=== PATIENT | female | born 1965 | race African-American/Black ===

== ENCOUNTER 2018-06-06 13:33 | Outpatient (RCR) ==
--- NOTE | 2018-06-09 09:00 | RS.OTEVAL ---
Subjective Date of Note: 06/06/18 Visit #: 1 Date of Evaluation: 06/06/18 Payer Source: Medicaid Surgery Performed?: Yes Date of Procedure: 04/18/18 Treatment Diagnosis: Z96.7 S/P ORIF to RUE elbow *Precautions: At risk for falls Prior Level of Function.....Patient was independent with: ADL's, Self Care, Work /Vocation, Caregiving, Ambulation/Mobility, Community Integration/Access History of Condition/Mechanism of Injury: Pt fell on 03/30/18, and she fell backwards and fractured her RUE elbow. She works Level of Function: Pt is 41.25% impaired with carry, moving, and handling objects. Pt has difficulty with fine motor tasks, preparing food, lifting groceries, sleeping is difficult, grooming her hair is difficult. Functional Limitations: Sleep, Self Care, ADL's, Reaching, Pushing, Pulling, Lifting, Carrying Current Complaints/Gains: Pt has difficulty reaching with the RUE, opening a jar , driving, lifting bag of groceries, preparing food, pushing up on hands, throwing a ball. Medical History Medical History Comments:: Right elbow fracture on 03/30/18 and pt had surgery on 04/18/18. Cast came off on 05/01/18. Pt has limited extension and supination of the RUE. Surgical History Comments:: Surgery to the Right elbow on 04/18/18. Hx Home Medications: unknown Patient's Goals: To get the elbow back to where she can use it as before. Pt wants the pain to be gone. Pain Assessment - Pain Description Pain Description: Burning, Radiating, Sharp Pain Location: Right elbow on the lateral epicondylitis. Pain Description: soreness, santos with elbow flexion. Current Pain Intensity: 1 Worst Pain Intensity: 8 Functional Outcome Measures UE Functional Index: 41 - G Codes & Severity Modifier G Codes: Current :CK at 41% impaired. Goal : CH Source of G Code score: Carry, moving, and handling. Observation - Observation Inspection: Pt has edema of the RUE lateral epicondylitis. Handedness: Left Shoulder ROM: Bilaterally WFL's Shoulder Muscle Strength: Bilaterally WFL's Elbow ROM: Left WFL's Elbow Muscle Strength: Left WFL's - Right Elbow ROM Right Elbow Extension: -42 Right Elbow Flexion: 48 (Can flex to 90 deg. but lacks ext.) Right Elbow Supination: 90 Right Elbow Pronation: 55 Right Elbow ROM Limitations: Soft Tissue Tightness, Muscle Weakness, Pain - Left Elbow Strength Left Elbow Extension: 4+ Good + Left Elbow Flexion: 4+ Good + Left Forearm Pronation: 4+ Good + Left Forearm Supination: 4+ Good + - Right Elbow Strength Right Elbow Extension: 3- Fair- Right Elbow Flexion: 3- Fair- Right Forearm Pronation: 3- Fair- Right Forearm Supination: 3 Fair Wrist ROM: Left WFL's Wrist Muscle Strength: Left WFL's - Right Wrist/Hand ROM Right Wrist Extension: 55 Right Wrist Flexion: 50 Right Wrist Radial Deviation: 15 Right Wrist Ulnar Deviation: 15 Right Forearm Pronation: 55 Right Forearm Supination: 90 Right Wrist ROM Testing Limitations: Soft Tissue Tightness, Muscle Weakness - Right Wrist Strength Right Wrist Extension: 4 Good Right Wrist Flexion: 4 Good Right Wrist Radial Deviation: 4 Good Right Wrist Ulnar Deviation: 4 Good Right Forearm Pronation: 4 Good Right Forearm Supination: 4 Good - Organ Pipe Finisher Strength Left Organ Pipe Finisher Strength: 51 Right Organ Pipe Finisher Strength: 16 Organ Pipe Finisher Strength Left Hand Organ Pipe Finisher Strength: 51 Right Hand Organ Pipe Finisher Strength: 16 Dynamometer Testing Position: 2nd Position Palpation Palpation Findings: Tenderness Comments:: Pt has tenderness on the lateral epicondylitis. Sensation Right Upper Extremity: Impaired (Pt wakes up at night with tingling and sharp pain intermittently.) Modalities - Hot Pack/Cryotherapy Treatment: Cryotherapy Interventions - Exercise/Activities Exercise/Activities/Manual Therapy: Contract relax to increase RUE elbow flexion / extension x 5 reps. Pt holds bottom of the chair to pull and lean back to stretch RUE elbow in to extension x 8 reps. Pt placed with hands on table top to complete Weight bearing to facilitate extension of Right elbow. Pt to hold the 5# for 1 minute to increase RUE elbow extension x 5 reps. HOME EXERCISE PROGRAM: Contract relax to increase RUE elbow flexion/ extension x 5 reps. Pt holds bottom of the chair to pull and lean back to stretch RUE elbow in to extension x 8 reps. Pt placed with hands on table top to complete Weight bearing to facilitate extension of Right elbow. Pt to hold the 5# for 1 minute to increase RUE elbow extension x 5 reps. - Objective Findings Objective Findings:: Limited RUE elbow extension, Limited RUe elbow flexion, weakness of RUE. - Charges Timed Code Treatment Minutes: 15 Total Treatment Time: 60 Procedures billed for this date of service:: Evaluation- medium, EX EVALUATION COMPLEXITY LEVEL: HISTORY: Medium, EXAM OF BODY SYSTEMS: Medium, CLINICAL DECISION MAKING: Medium Assessment Assessment: Pt has weakness of RUE elbow. Pt has limited RUE elbow flexion and extension. Pt has burning and and sharp pain and tingling in the RUE lateral epicondylitis. Rehab Potential: Good Problems/Comments: Pain in the elbow. Weakness, limited AROM. Short Term Goals Goal #1: Pt to increase RUE elbow extension to -15 degrees. Goal to be met by: 06/20/18 Goal #2: Pt to increase Elbow flexion to 125 degrees Goal to be met by: 06/20/18 Goal #3: Pt to increase mass human resources trainer to 30# Goal to be met by: 06/20/18 Goal #4: Pt to be able to complete buttons independently Goal to be met by: 06/20/18 [facility] Goals Goal #1: Pt to increase RUE elbow extension to 0 degrees. Goal to be met by: 07/21/18 Goal #2: Pt to increase Elbow flexion to 150 degrees Goal to be met by: 07/21/18 Goal #3: Pt to increase mass human resources trainer to 45# Goal to be met by: 07/21/18 Goal #4: Pt to be independent with self care management. Goal to be met by: 07/21/18 Plan - Treatment to be provided Procedures: Therapeutic Exercises, Therapeutic Activity, Neuromuscular Rehab, Manual Therapy, Patient Education Modalities: Electrical Stimulation, Ultrasound/Phonophoresis, Cryotherapy, Hot Packs - Treatment Plan Frequency: 2 X week Duration: 6 weeks ORDER # VISITS AND/OR THROUGH DATE: 2017 - Treatment Code (1) Stiffness of right elbow joint Code(s): M25.621 - STIFFNESS OF RIGHT ELBOW, NOT ELSEWHERE CLASSIFIED Comments: M25.621 Elbow joint stiffness (2) Muscle weakness Code(s): M62.81 - MUSCLE WEAKNESS (GENERALIZED) Comments: M62.81
== END 2018-06-17 23:59 ==
PROVIDERS: ATTEND Nurse Practitioner
DX: Z96.7 Presence of other bone and tendon implants (principal)